=== PATIENT | male | born 1990 | race Caucasian/White ===

== ENCOUNTER 2020-03-21 16:48 | Emergency (ER) | payer MEDICAID ==
[~2020-03-21] VITALS: Ht 182.9 cm; Wt 62.4 kg
[~2020-03-21 16:48] MED LIST: DIVA500T2
[2020-03-21] MEDS ORDERED: VANCOMYCIN PER PHARMACY MC ONE (17:30)
[2020-03-21] MEDS ORDERED: VANCOMYCIN 1,500 MG in SODIUM CHLORIDE 0.9% 250 ML IV ONE (17:30)
[2020-03-21] MEDS ORDERED: SODIUM CHLORIDE 0.9% 1,000ML IVBOLUS ONE (17:30)
[2020-03-21] MEDS ORDERED: AMPICILLIN/SULBACTAM 3 GM in SODIUM CHLORIDE 0.9% 100 ML IV ONE (17:30)
[2020-03-21] MEDS ORDERED: SODIUM CHLORIDE FLUSH 10ML SYR IVF ONE (17:30)
[2020-03-21] MEDS ORDERED: PHARMACOKINETIC CONSULTATION MC ONE (17:30)
[2020-03-21 17:48] LABS: BASOPHILS # (AUTO) 0.04 x10^3/uL (0-0.1); BASOPHILS % (AUTO) 0 % (0-1); EOSINOPHILS # (AUTO) 0.05 x10^3/uL (0-0.4); EOSINOPHILS % (AUTO) 0 % (1-7); LYMPHOCYTES % (AUTO) 8 % (22-44); MD NO; MEAN CORPUSCULAR HEMOGLOBIN 28.5 pg (27.5-34.5); MEAN CORPUSCULAR HGB CONC 33.6 g/dL (33.2-36.2); MEAN CORPUSCULAR VOLUME 84.7 fL (81-97); MEAN PLATELET VOLUME 8.3 fL (7.4-10.4); MONOCYTES % (AUTO) 10 % (2-9); NEUTROPHILS % (AUTO) 82 % (42-75); PLATELET COUNT 295 x10^3/uL (130-400); RED BLOOD COUNT 4.76 x10^6/uL (4.38-5.82); RED CELL DISTRIBUTION WIDTH 13.2 % (9.4-14.8)
[2020-03-21 17:51] LABS: ALANINE AMINOTRANSFERASE 26 U/L (12-78); ANION GAP 6 mmol/L (5-15); CALCIUM 8.7 mg/dL (8.5-10.1); CHLORIDE 99 mmol/L (98-107); CREATININE 0.79 mg/dL (0.7-1.3)
[2020-03-21 17:53] LABS: ALKALINE PHOSPHATASE 87 U/L (45-117); BILIRUBIN,TOTAL 0.8 mg/dL (0.2-1.0); TOTAL PROTEIN 7.3 g/dL (6.4-8.2)
[2020-03-21] MEDS ORDERED: OMNIPAQUE 350 MG/ML, 100ML BOTTLE ONE (18:53)
--- NOTE | 2020-03-21 18:58 | NUR ---
LABS AND CT COMPLETED WITH FLUIDS INFUSING AND FIRST ANTIBIOTIC COMPLETED. REPORT TO DEZ ONOFRE
--- NOTE | 2020-03-21 19:00 | NUR ---
BS REPORT FROM ZENIA RN, PT CARE TRASNFERRED AT THIS TIME. PT RESTING IN [facility], [facility], S. WAITING ON CT READ. WCTM.
--- NOTE | 2020-03-21 19:15 | NUR ---
LATE ENTRY: PT SITTING UP IN BED APPEARS RESTLESS, STATING "I JUST NEED FOOD" PT INFORMED WE NEEDED TO WAIT FOR CT RESULTS PRIOR TO GETTING HIM FOOD. PT REFUSING PULSE OX ON FINGER. PT ARM IS REDDENED AND WARM. PT CMS INTACT. PT MEDICATED PER NOV. WCTM.
[2020-03-21 19:25] VITALS: BP 109/65
--- NOTE | 2020-03-21 20:00 | NUR ---
PRECEPTOR RN: DR. MCCRARY AT BEDSIDE DISCUSSING RISKS ASSOCIATED WITH REFUSING TO BE ADMITTED AND RECEIVE TREATMENT OF HIS INFECTION. THE PT IS ADAMANT THAT "I HAVE TO GO HOME AND FINISH UP SOME THINGS". HE VERBALLY ACKNOWLEDGES THE RISKS ASSOCIATED WITH REFUSING TO BE ADMITTED AND STATES HE WILL COME BACK IF HIS SYMPTOMS BECOME WORSE
--- NOTE | 2020-03-21 20:21 | NUR ---
RN AT BS D/T PUMP ALARM, PT COMPLAINING THAT "I JUST NEED TO LEAVE MY DAD IS SICK". RN INFORMED PT OF IMPORTANCE OF GETTING FULL ABX DOSE. PT DID NOT APPEAR RECEPTIVE TO INFORMATION, PLAYING ON PHONE AND IGNORING RN. RN ASKED PT IF HE IS GOING TO STAY AND HE STATED "I MEAN YEAH, SURE, I GUESS I CAN WAIT". WCTM. VSS.
--- NOTE | 2020-03-21 20:34 | NUR ---
PRECEPTOR RN: PT BECAME AGITATED AND NOW REQUESTING TO LEAVE RIGHT AWAY, STATING "I JUST NEED TO GO, I HAVE AN ELDERLY FATHER THAT I NEED TO SEE, IT'S FATHER'S DAY AND I'VE ALREADY MISSED IT BECAUSE I'VE BEEN HERE". PT ADVISED OF RISKS OF NOT FINISHING IV ANTIBIOTICS. PT UNDERSTANDS. IV REMOVED AND PT ADVISED HE CAN COME BACK AT ANYTIME TO RECIEVE TREATMENT.
--- NOTE | 2020-03-21 20:51 | NUR ---
PT LEFT AMA, SIGNED AMA PAPERWORK. INFORMED OF RISKS OF LEAVING AMA. PT STATES "I NEED TO GO, I DONT CARE." RN GAVE PT DC PAPERWORK AND REVIEW SCRIPTS AND STRESSED IMPORTANCE OF GETTING MEDS FILLED. PT DID NOT SEEM RECEPTIVE TO INFORMATION, GETTING DRESSED WHILE RN TALKING. PT INFORMED THAT HE CAN RETURN IF HE CHANGES HIS MIND OR IF ARM BECOMES WORSE. PT WALKING TO DC DESK WITH ALL BELONGINGS IN HAND. PT IN NAD AT TIME OF DC.
== END 2020-03-21 19:52 ==
LOC: ED 19:50
DX: A41.9 Sepsis, unspecified organism (principal); L03.113 Cellulitis of right upper limb
CPT/HCPCS: 36415; 73201; 80053; 83605; 84145; 85025; 87040; 96365; 96367; 99285; J0295; J3370; J7030; J7050; Q9967; 96368